=== PATIENT | female | born 1965 | race Caucasian/White ===

== ENCOUNTER 2016-10-06 11:33 | Emergency (ER) | payer BC ==
[2016-10-06 11:41] VITALS: BP 148/87; PULSE 78; TEMP 98; BMI 25.2
[2016-10-06] MEDS ORDERED: DEXAMETHASONE SOD PHOSPHATE 10 MG/1 ML VIAL IM ONE (12:22)
--- NOTE | 2016-10-06 12:27 | PDOC ---
History of Present Illness - General Chief Complaint: Allergic Reaction Stated Complaint: ALLERGIC REACTION Time Seen by Provider: 10/06/16 11:50 History Source: Patient Exam Limitations: No Limitations - History of Present Illness Initial Comments: 10/06/16 12:22 States while at work with eating some berries with a friend when she had an acute onset of swelling to her lips, tongue and felt inability to swallow. Denied any wheezing, palpitations or chest pain. Has never had an ALLERGIC reaction or anaphylaxis to any food or other allergens. 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 Patient denies any history of illness recently, no fevers earache or sore throat pain. Denies cough. Takes no medications, 10/06/16 12:22 10/06/16 12:23 10/06/16 19:31 10/06/16 19:31 Timing/Duration: reports: just prior to arrival, gone now Severity: reports: mild, moderate Possible Cause: Yes: no prior episodes Associated Symptoms: reports: denies symptoms, nasal drainage. denies: cough, dizziness, earache, facial pain, fever/chills, nasal congestion, shortness of breath, sore throat, wheezing Past History - Travel Traveled outside of the country in the last 30 days: No Close contact w/someone who was outside of country & ill: No - Past Medical History Allergies/Adverse Reactions: Allergies Allergy/AdvReac Type Severity Reaction Status Date / Time No Known Allergies Allergy Verified 10/06/16 11:41 Home Medications: Ambulatory Orders Epinephrine (Epi-Pen 0.3MG) [Epipen 0.3MG -] 0.3 mg IM ASDIR #2 pens 10/06/16 Other medical history: DENIES - Psycho/Social/Smoking Cessation Hx Suicidal Ideation: No Smoking History: Never smoked Information on smoking cessation initiated: No Review of Systems - Review of Systems Able to Perform ROS?: Yes Is the patient limited Taiwanese proficient: Yes Constitutional: Yes: Symptoms Reported, See HPI, Malaise Respiratory: Yes: Symptoms reported, See HPI, Cough Musculoskeletal: Yes: Symptoms Reported All Other Systems: Reviewed and Negative *Physical Exam - Vital Signs Last Vital Signs Temp Pulse Resp BP Pulse Ox 98 F 78 18 148/87 99 10/06/16 11:38 10/06/16 11:38 10/06/16 11:38 10/06/16 11:38 10/06/16 11:38 - Physical Exam General Appearance: Yes: Nourished, Appropriately Dressed. No: Apparent Distress HEENT: positive: EOMI, HEIDI, TMs Normal, Pharynx Normal (swelling, airway is clear, no drainage noted in posterior pharynx, lungs is normal size). negative : Muffled/Hoarse voice, Pharyngeal Erythema (swelling,), Tonsillar Exudate, Tonsillar Erythema, Rhinorrhea, Sinus Tenderness Neck: positive: Supple, Lymphadenopathy (R), Lymphadenopathy (L). negative: Tender Respiratory/Chest: positive: Lungs Clear, Normal Breath Sounds Cardiovascular: positive: Regular Rhythm, Regular Rate Gastrointestinal/Abdominal: positive: Normal Bowel Sounds, Soft Musculoskeletal: positive: Normal Inspection Extremity: positive: Normal Capillary Refill, Normal Inspection Integumentary: positive: Normal Color, Dry, Warm Neurologic: positive: phototypesetting equipment monitor II-XII NML intact, Fully Oriented, Alert, Normal Mood/ Affect, Normal Response, Motor Strength 5/5 Progress Note - Progress Note Progress Note: ALLERGIC reaction resolved after Benadryl. We will give one dose of Decadron and recommend close observation for the next 24 hours and continue antihistamines Medical Decision Making - Medical Decision Making 10/06/16 14:32 patient observed for approximately 2 hours post arrival to emergency department. Has no recurrence of angioedema: No swelling to lips tongue or pharynx. States feels well, tired from Benadryl but requests discharge. States family members at home, and understands the importance for close follow-up and return to emergency for any changes or recurrence of symptoms. *DC/Admit/Observation/Transfer Diagnosis at time of Disposition: Allergic reaction Qualifiers: Encounter type: initial encounter Qualified Code(s): T78.40XA - Allergy, unspecified, initial encounter - Discharge Dispostion Disposition: HOME Condition at time of disposition: Stable Admit: No - Prescriptions Prescriptions: Epinephrine (Epi-Pen 0.3MG) [Epipen 0.3MG -] 0.3 mg IM ASDIR #2 pens - Referrals Referrals: Evan Godoy [Primary Care Provider] - Rajesh Mcclendon MD [Staff Physician] - - Patient Instructions Printed Discharge Instructions: DI for General Allergic Reactions Additional Instructions: Rest, drink lots of fluids: Teas, water, soups Continue antihistamines for next 2 days; Zyrtec, Claritin, May during the daytime and Benadryl at nighttime as will make sleepy Tylenol or Motrin for fever and pain EPI-PEN As directed for emergency use for recurrence of swelling, breathing problems, palpitations or wheezing Followup with private physician in one to 2 days as needed Consider following up with an director of aviation/gas appliance mechanic for skin testing and possible allergy shots Return to emergency department for worsened symptoms, fevers, dehydration - Post Discharge Activity Work/School Note: Back to Work
[2016-10-06] MEDS ORDERED: DEXAMETHASONE SOD PHOSPHATE 10 MG/1 ML VIAL ONE (12:29)
[2016-10-06] MEDS ORDERED: diphenhydrAMINE HCL 12.5 MG/5 ML UNIT-DOSE CUPS PO ONE (12:32)
[2016-10-06] MEDS ORDERED: diphenhydrAMINE HCL 12.5 MG/5 ML UNIT-DOSE CUPS ONE (12:35)
== END 2016-10-06 14:25 | disposition home or self-care (01) ==
LOC: JERFT 11:33
PROC: 3E0233Z Introduction of Anti-inflammatory into Muscle, Percutaneous Approach (ICD-10-PCS; principal; 2016-10-06)
DX: T78.1XXA Other adverse food reactions, not elsewhere classified, initial encounter (principal); T78.3XXA Angioneurotic edema, initial encounter; X58.XXXA Exposure to other specified factors, initial encounter
CPT/HCPCS: 99281-25